=== PATIENT | female | born 1995 | race Caucasian/White ===

== ENCOUNTER 2018-11-27 14:06 | Emergency (ER) | payer OTHER ==
[~2018-11-27] VITALS: Ht 165.1 cm; Wt 83.5 kg
--- NOTE | 2018-11-27 14:18 | NUR ---
"Having bad benzo withdrawals. Had seizures this am. Feel hot/shaky/tired" AA/OX4, Breathing even and unlabored, no sob noted, needs attended. Seizure precaution observed.
[2018-11-27 15:21] LABS: APPEARANCE,URINE CLEAR (CLEAR); BILIRUBIN,URINE NEGATIVE (NEGATIVE); BLOOD, URINE NEGATIVE Ery/uL (NEGATIVE); COLOR,URINE DARK YELLO (YELLOW); KETONES,URINE 2+ (NEGATIVE); LEUKOCYTE ESTERASE ,URINE TRACE (NEGATIVE); NITRITE, URINE NEGATIVE (NEGATIVE); PH,URINE 5.5 (5.0-8.0); PROTEIN,URINE NEGATIVE (NEGATIVE); UGLUCOSE NEGATIVE (NEGATIVE); UROBILINOGEN,URINE 0.2 EU/dL (0.2)
[2018-11-27 15:23] LABS: BASOPHILS # (AUTO) 0.1 /CMM (0.0-0.2); BASOPHILS % (AUTO) 0.8 % (0.0-2.0); EOSINOPHILS % (AUTO) 0.2 % (0.0-6.0); HEMATOCRIT 43 % (33-45); HEMOGLOBIN 14.2 g/dL (11.5-14.8); LYMPHOCYTES # (AUTO) 2.8 /CMM (0.8-4.8); LYMPHOCYTES % (AUTO) 31.8 % (20.0-44.0); MEAN CORPUSCULAR HGB CONC 33 g/dl (31.0-36.0); MEAN CORPUSCULAR VOLUME 84 fL (82-100); MONOCYTES # (AUTO) 0.7 /CMM (0.1-1.30); MONOCYTES % (AUTO) 8.5 % (2.0-12.0); NEUTROPHILS # (AUTO) 5.1 /CMM (1.8-8.9); NEUTROPHILS % (AUTO) 58.7 % (43.0-81.0); PLATELET COUNT (AUTO) 401 /CMM (150-450); RED BLOOD CELL COUNT(AUTO) 5.12 MIL/uL (4.0-5.2); WHITE BLOOD COUNT (AUTO) 8.7 K/uL (4.3-11.0)
[2018-11-27 15:28] LABS: RBC,URINE 0-2 /HPF (0-2)
[2018-11-27 15:29] LABS: BACTERIA,URINE Few /HPF (None Seen); SQUAMOUS EPITHELIAL CELL,UR Moderate /HPF (None Seen); WBC,URINE 0-3 /HPF (0-3)
[2018-11-27] MEDS ORDERED: LORAZEPAM 1 MG TABLET PO ONE (15:30)
[2018-11-27] MEDS ORDERED: LORAZEPAM 1 MG TABLET ONE (15:39)
[2018-11-27 15:44] LABS: CALCIUM, SERUM 9.5 mg/dL (8.5-10.1); CARBON DIOXIDE 22 mmol/L (21-32); CHLORIDE 106 mmol/L (98-107); CREATININE 0.7 mg/dL (0.6-1.3); GLUCOSE 85 mg/dL (74-106); POTASSIUM 3.7 mmol/L (3.5-5.1); SODIUM SERUM 143 mmol/L (136-145); UREA NITROGEN, BLOOD 9 mg/dL (7-18)
[2018-11-27 15:55] LABS: ALANINE AMINOTRANSFERASE 32 U/L (12-78); ALBUMIN 4.2 g/dL (3.4-5.0); ALKALINE PHOSPHATASE 82 U/L (46-116); ASPARTATE AMINOTRANSFERASE 17 U/L (15-37); BILIRUBIN,DIRECT 0.1 mg/dL (0.0-0.2); BILIRUBIN,TOTAL 0.4 mg/dL (0.2-1.0); SALICYLATE 3.7 mg/dL (2.8-20.0)
--- NOTE | 2018-11-27 16:03 | NUR ---
SEEN BY BOB FROM CARE MANAGER
--- NOTE | 2018-11-27 16:05 | NUR ---
Social service consult requested by Dr. Jarrett for drug abuse referrals. Pt. is a 23 year old female who came to [facility] stating she has a seizure this morning due to withdrawing from benzodiazepines. Pt. has a history of PTSD and anxiety. DARREL met with pt. bedside. Pt. is alert and oriented x 4. Pt. is pleasant and cooperative with SW. Pt. states she currently lives in a sober living in [place]. Pt. has been there since last week. Pt. moved from [place] to [place]. Pt. was at a drug treatment program five six months ago and has been sober since. Pt's drug of choice was heroin. Pt. stated she was taking 4mg of Xanax everyday for the past 2 months, and states she has been getting Xanax from streets. The patient states she ran out of her Xanax two days ago and last took them on Saturday, 2 days ago. Pt. has an appointment with her psychiatrist tomorrow. DARREL encouraged pt. to follow through and go to her appointment. DARREL also gave pt. the following drug treatment program referrals: [facility], ; [facility] and [facility] . Pt requested for crackers and orange juice. DARREL informed pt's VESTA Pratt regarding pt's request. No other social service needs are requested at this time.
[2018-11-27 16:27] VITALS: BP 122/83
--- NOTE | 2018-11-27 16:27 | NUR ---
Patient given written and verbal discharge instructions. Patient verbalizes understanding of instructions. Patient is ambulatory with steady gait. Refuses offer of halfway placement. Patient given list of available shelters in surrounding area. Resources provided by [facility]. Left in stable condition.
[2018-11-27 16:32] LABS: ACETAMINOPHEN < 10 ug/ml (10-30); ALCOHOL, BLOOD < 3 mg/dL (0-0)
== END 2018-11-27 16:28 | disposition home or self-care (01) ==
LOC: ER 14:16
DX: F13.239 Sedative, hypnotic or anxiolytic dependence with withdrawal, unspecified (principal); F41.9 Anxiety disorder, unspecified; F43.10 Post-traumatic stress disorder, unspecified; F32.9 Major depressive disorder, single episode, unspecified
CPT/HCPCS: 36415; 70450; 80048; 80076; 80305; 80307; 80329; 81001; 85025; 99284; G0480; 81000-TC